=== PATIENT | male | born 1960 | race Two or more races ===

== ENCOUNTER 2025-08-14 08:13 | Inpatient (IN) | payer MEDICAID, OTHER ==
[~2025-08-14] VITALS: Ht 180.3 cm; Wt 90.3 kg
[2025-08-14 08:20] VITALS: PULSE 105; RESP 30; O2SAT 90
--- NOTE | 2025-08-14 08:57 | ECG ---
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
--- NOTE | 2025-08-14 09:04 | ED.PDOC ---
SOB-HPI HPI Comments 64 y.o male with PMHx of CH and HTN, presents to the ED via EMS for a chief complaint of SOB that started 2 days ago. EMS reports diminished lung sounds on their examination with a SPO2 of 81% RA. EMS placed patient on 10 liters nonrebreather and given 0.4 NTG which did not improve SPO2. Patient mentions unable to refill medications and has been out of them for 2 weeks. He also complains of intermittent chest pain for the past couple days but denies any active pain upon ED arrival. Chief Complaint: Shortness of Breath Time Seen by MD: 08:42 Reviewed notes: Nurses Notes, Medications, Allergies Information Source: Patient Mode of Arrival: EMS Severity: Moderate Timing: Days (2) Duration: Since onset Context: At Rest PE Risk Factors: None History of: CHF Modifying Factors: Nothing Associated Signs and Symptoms: Chest Pain Past Medical History PAST MEDICAL HISTORY: CHF, HTN Surgical History: Denies all surgeries Family History Family History: Reviewed,noncontributory to illness Social History Smoker: Quit Less Than 1 Year Alcohol: Denies ETOH Use Drugs: Denies Drug Use Lives In: Home Constitutional: denies: chills, diaphoresis, fatigue, fever, malaise, sweats, weakness, others EENTM: denies: blurred vision, double vision, ear bleeding, ear discharge, ear drainage, ear pain, ear ringing, eye pain, eye redness, hearing loss, mouth pain, mouth swelling, nasal discharge, nose bleeding, nose congestion, nose pain, photophobia, tearing, throat pain, throat swelling, voice changes, others Respiratory: reports: SOB at rest, shortness of breath, SOB with excertion; denies: cough, hemoptysis, orthopnea, stridor, wheezing, others Cardiovascular: reports: chest pain; denies: dizzy spells, diaphoresis, Dyspnea on exertion, edema, irregular heart beat, left arm pain, lightheadedness, palpitations, PND, syncope, others Gastrointestinal: denies: abdomen distended, abdominal pain, blood streaked bowels, constipated, diarrhea, dysphagia, difficulty swallowing, hematemesis, melena, nausea, poor appetite, poor fluid intake, rectal bleeding, rectal pain, vomiting, others Genitourinary: denies: burning, dysuria, flank pain, frequency, hematuria, incontinence, penile discharge, penile sore, pain, testicle pain, testicle swelling, urgency, others Neurological: denies: dizziness, fainting, headache, left sided numbness, left sided weakness, numbness, paresthesia, pre-existing deficit, right sided numbness, right sided weakness, seizure, speech problems, tingling, tremors, weakness, others Musculoskeletal: denies: back pain, gout, joint pain, joint swelling, muscle pain, muscle stiffness, neck pain, others Integumetry: denies: bruises, change in color, change in hair/nails, dryness, laceration, lesions, lumps, rash, wounds, others Allergic/Immunocompromised: denies: Difficulty Healing, Frequent Infections, Hives, Itching, others Hematologic/Lymphatic: denies: anemia, blood clots, easy bleeding, easy bruising, swollen glands, others Endocrine: denies: excessive hunger, excessive sweating, excessive thirst, excessive urination, flushing, intolerance to cold, intolerance to heat, unexp lained weight gain, unexplained weight loss, others Psychiatric: denies: anxiety, bipolar disorder, depression, hopeless, panic disorder, schizophrenia, sleepless, suicidal, others All Other Systems: Reviewed and Negative Physical Exam General Appearance: Moderate Distress HEENT: Normal ENT Inspection, Pharynx Normal, TMs Normal Neck: Full Range of Motion, Non-Tender, Normal, Normal Inspection Respiratory: Respiratory Distress, Other (Coarse breath sounds), NOT DONE Cardiovascular: Tachycardia Breast Exam: Deferred Gastrointestinal: No Organomegaly, Non Tender, No Pulsatile Mass, Normal Bowel Sounds, Soft Genitalia: Deferred Pelvic: Deferred Rectal: Deferred Extremities: No calf tenderness, Normal capillary refill, Normal inspection, Normal range of motion, Non-tender, No pedal edema Musculoskeletal : Apperance: Normal 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 Was a procedure done?: No Differential Dx Differential Diagnosis: Anxiety, Asthma, Bronchitis, CHF, COPD, Hyperventilation, Hyponatremia, Pneumonia, Respiratory Distress, URI X-Ray, Labs, Meds, VS Vital Signs Date Time Temp Pulse Resp B/P (MAP) Pulse Ox O2 Delivery O2 Flow Rate FiO2 08/14/25 11:59 77 25 123/82 (96) 99 08/14/25 10:38 99 137/100 08/14/25 10:30 99 25 137/100 (112) 99 08/14/25 09:45 158/112 08/14/25 09:41 105 158/112 08/14/25 09:15 105 25 158/112 (127) 95 08/14/25 09:04 103 08/14/25 08:30 103 08/14/25 08:20 105 30 90 Non-Rebreather 10 N/A 08/14/25 08:20 97.9 105 30 145/109 (121) 90 97.9 08/14/25 08:13 97.9 105 24 145/107 99 97.9 Lab Test 08/14/25 09:40 08/14/25 08:42 08/14/25 08:30 Range/Units White Blood Count 10.9 H 4.4-10.8 10^3/uL Red Blood Count 4.53 4.5-5.90 10^6/uL Hemoglobin 14.3 13.5-17.5 g/dL Hematocrit 41.8 41.0-53.0 % Mean Corpuscular Volume 92.3 80.0-100.0 fL Mean Corpuscular Hemoglobin 31.7 28.0-32.0 pg Mean Corpuscular Hemoglobin Concent 34.3 32.0-36.0 g/dL Red Cell Distribution Width 13.8 11.8-14.3 % Platelet Count 269 140-450 10^3/uL Mean Platelet Volume 9.9 6.9-10.8 fL Neutrophils (%) (Auto) 75.7 37.0-80.0 % Lymphocytes (%) (Auto) 12.9 10.0-50.0 % Monocytes (%) (Auto) 10.3 0.0-12.0 % Eosinophils (%) (Auto) 0.6 0.0-7.0 % Basophils (%) (Auto) 0.5 0.0-2.0 % Neutrophils # (Auto) 8.2 1.6-8.6 10 ^3/uL Lymphocytes # (Auto) 1.4 0.4-5.4 10 ^3/uL Monocytes # (Auto) 1.1 0-1.3 10 ^3/uL Eosinophils # (Auto) 0.1 0-0.8 10 ^3/uL Basophils # (Auto) 0.1 0-0.2 10 ^3/uL Nucleated Red Blood Cells 0.0 % B-Type Natriuretic Peptide 3686.79 0-100 pg/mL Sodium Level 143 136-145 mmol/L Potassium Level 4.8 3.5-5.1 mmol/L Chloride Level 111 H 98-107 mmol/L Carbon Dioxide Level 19 L 20-31 mmol/L Anion Gap 13 5-15 Blood Urea Nitrogen 40 H 9-23 mg/dL Creatinine 2.44 H 0.700-1.30 mg/dL Glomerular Filtration Rate Calc 29 >90 mL/min BUN/Creatinine Ratio 16.4 10.0-20.0 Serum Glucose 102 74-106 mg/dL Calcium Level 9.3 8.7-10.4 mg/dL Total Bilirubin 1.2 H 0.2-1.0 mg/dL Aspartate Amino Transferase (AST) 69 H 13-40 U/L Alanine Aminotransferase (ALT) 60 H 7-40 U/L Alkaline Phosphatase 162 H 46-116 U/L Total Protein 7.5 5.7-8.2 g/dL Albumin 4.4 3.2-4.8 g/dL Urine Color Light-yellow Yellow Urine Clarity Clear Clear Urine pH 5.0 5.0-9.0 Urine Specific [place] 1.009 1.001-1.035 Urine Protein Negative Negative Urine Ketones Negative Negative Urine Blood Negative Negative /uL Urine Nitrite Negative Negative Urine Bilirubin Negative Negative Urine Urobilinogen Normal Negative mg/dL Urine Leukocyte Esterase Negative Negative /uL Urine RBC <1 0 - 3 /hpf Urine Microscopic WBC 3 0-3 /HPF Urine Squamous Epithelial Cells None seen <5 /hpf Urine Bacteria Few H None Seen /hpf Urine Glucose 3+ H Normal mg/dL Current Medications Medications (Trade) Dose Ordered Sig/Jud Route Start Time Stop Time Status Last Admin Metoprolol Tartrate (Lopressor Tablet) 50 mg ONCE ONCE PO 08/14/25 09:30 08/14/25 09:31 DC 08/14/25 09:41 Furosemide (Lasix Tablet) 20 mg DAILY ONCE PO 08/14/25 10:00 08/14/25 10:01 DC 08/14/25 09:45 Patient alert. Complaining of shortness a breath. Vitals stable. Answering questions. Tachycardia. EKG reviewed does not show any acute changes. Was given metoprolol. Was given Lasix. Has not been taking his medications for few weeks. Placed on oxygen. Continue monitor. X-Ray, Labs, Meds, VS Comment AP portable chest CLINICAL INDICATION: SOB FINDINGS: Heart size enlarged. No infiltrates or effusions. IMPRESSION: 1. Cardiomegaly. No acute cardiopulmonary pathology Time of 1ST Reevaluation: 08:58 Reevaluation 1ST: Unchanged Patient Education/Counseling: Diagnosis, Treatment, Prognosis Family Education/Counseling: No Family Present SEPSIS Sepsis Screen Date sepsis recognized/suspect: Aug 14, 2025 Time Sepsis recognized/suspect: 812 Recent Procedure: No On Antibiotic Therapy: No Respiratory Rate >20: Yes Heart Rate >90: Yes Temp<36 C (96.8 F) or >38.3 C: No SBP <90 or MAP <65 mmHG: No New Acute Mental Status Change: No Is the patient on CPAP, BIPAP,: No Physician Orders Chest Portable (08/14/25 08:29) Vital Signs Date Time Temp Pulse Resp B/P (MAP) Pulse Ox O2 Delivery O2 Flow Rate FiO2 08/14/25 11:59 77 25 123/82 (96) 99 08/14/25 10:38 99 137/100 08/14/25 10:30 99 25 137/100 (112) 99 08/14/25 09:45 158/112 08/14/25 09:41 105 158/112 08/14/25 09:15 105 25 158/112 (127) 95 08/14/25 09:04 103 08/14/25 08:30 103 08/14/25 08:20 105 30 90 Non-Rebreather 10 N/A 08/14/25 08:20 97.9 105 30 145/109 (121) 90 97.9 08/14/25 08:13 97.9 105 24 145/107 99 97.9 Laboratory Tests Test 08/14/25 09:40 White Blood Count 10.9 10^3/uL (4.4-10.8) H Medications Medications Dose Ordered Sig/Jud Route Start Time Stop Time Status Last Admin Dose Admin Furosemide 20 mg DAILY ONCE PO 08/14/25 10:00 08/14/25 10:01 DC 08/14/25 09:45 Metoprolol Tartrate 50 mg ONCE ONCE PO 08/14/25 09:30 08/14/25 09:31 DC 08/14/25 09:41 Departure 1 Departure Time of Disposition: 09:29 Impression: Primary Impression: Acute respiratory failure Qualified Codes: J96.01 - Acute respiratory failure with hypoxia Disposition: ADMITTED INPATIENT Admit to: Med Surg Condition: Guarded Critical Care Note Critical Care Time?: Yes (90 min-critical care time only) Stability Stability form required: No Heart Score Heart Score: Heart Score Response (Comments) Value History Slightly Suspicious 0 EKG Normal 0 Age 45-64 1 Risk Factors 1 or 2 risk factors 1 Troponin Normal limit 0 Total 2 I personally scribed for SOFY MUNOZ MD ([email or web address]) on 08/14/25 at 09:04. Electronically submitted by [facility] ([facility]). I personally scribed for SOFY MUNOZ MD ([email or web address]) on 08/14/25 at 10:00. Electronically submitted by [facility] ([facility]). SOFY MUNOZ MD Aug 14, 2025 09:04
--- NOTE | 2025-08-14 09:05 | DVH ---
AP portable chest CLINICAL INDICATION: SOB FINDINGS: Heart size enlarged. No infiltrates or effusions. IMPRESSION: 1. Cardiomegaly. No acute cardiopulmonary pathology
[2025-08-14 09:06] LABS: Albumin 4.4 g/dL (3.2-4.8); Anion Gap 13 (5-15); BUN/Creatinine Ratio 16.4 (10.0-20.0); Bilirubin, Total 1.2 mg/dL (0.2-1.0); Calcium 9.3 mg/dL (8.7-10.4); Glucose 102 mg/dL (74-106); Potassium 4.8 mmol/L (3.5-5.1); Sodium 143 mmol/L (136-145); Total Protein 7.5 g/dL (5.7-8.2)
[2025-08-14 09:35] LABS: Alanine Aminotransferase 60 U/L (7-40); Alkaline Phosphatase 162 U/L (46-116); Blood Urea Nitrogen 40 mg/dL (9-23); Carbon Dioxide 19 mmol/L (20-31); Chloride 111 mmol/L (98-107)
[2025-08-14 09:36] LABS: Urine Protein, UAD Negative (Negative)
[2025-08-14] MEDS: METOPROLOL TARTRATE 50 MG TAB PO ONE (09:41)
[2025-08-14] MEDS: FUROSEMIDE 20 MG TAB PO ONE (09:45)
[2025-08-14 10:00] LABS: Hematocrit 41.8 % (41.0-53.0); Hemoglobin 14.3 g/dL (13.5-17.5); Mean Corpuscular Hemoglobin 31.7 pg (28.0-32.0); Mean Corpuscular Volume 92.3 fL (80.0-100.0); Nucleated Red Blood Cells % 0.0 %
--- NOTE | 2025-08-14 13:50 | DVHHP2 ---
History of Present Illness History of Present Illness 64 y.o male with PMHx of CH and HTN, presents to the ED via EMS for a chief complaint of SOB that started 2 days ago. EMS reports diminished lung sounds on their examination with a SPO2 of 81% RA. EMS placed patient on 10 liters nonrebreather and given 0.4 NTG which did not improve SPO2. Patient mentions unable to refill medications and has been out of them for 2 weeks. He also complains of intermittent chest pain for the past couple days but denies any active pain upon ED arrival. Patient endorses that he was seeing a box toe cementer but recently changed insurances from [employer] to [employer], currently no box toe cementer. He believes he heard EF 10-15% in the past echocardiogram. He is taking multiple medications with which he has been compliant. Endorses that normally his right leg swells up more. Review of Systems Constitutional: No: Fever, Chills, Sweats, Weakness, Malaise, Other Respiratory: Shortness of breath, SOB with excertion; No: Cough, Dry, Wheezing, Hemoptysis, Pleuritic Pain, Sputum, Wheezing, Other Cardiovascular: Edema; No: Chest Pain, Palpitations, Orthopnea, Paroxysmal Noc. Dyspnea, Lt Headedness, Other Gastrointestinal: No: Nausea, Vomiting, Abdominal Pain, Diarrhea, Constipation, Melena, Hematochezia, Other Neurological: No: Weakness, Numbness, Incoordination, Change in speech, Confusion, Seizures, Other Allergies: Coded Allergies: NO KNOWN ALLERGIES (Unverified , 08/14/25) Exam Vital Signs Vital Signs Date Time Temp Pulse Resp B/P (MAP) Pulse Ox O2 Delivery O2 Flow Rate FiO2 08/14/25 11:59 77 25 123/82 (96) 99 08/14/25 08:20 Non-Rebreather 10 N/A 08/14/25 08:20 97.9 97.9 Exam GEN: Unhealthy, short of breath, on nasal cannula HEENT: NC/AT; MMM. CV: RRR, no m/r/g. LUNGS: Rales bilaterally up to middle lobes bilateral, no wheezing, no cyanosis ABD: Soft, NT/ND, NBS, no masses or organomegaly. EXT: skin Warm, well perfused. no rashes. Trace pitting edema right lower extremity NEURO: Ambulating with no limitations. No focal deficits. Labs/Xrays Labs Test 08/14/25 09:40 08/14/25 08:42 08/14/25 08:30 Range/Units White Blood Count 10.9 H 4.4-10.8 10^3/uL Red Blood Count 4.53 4.5-5.90 10^6/uL Hemoglobin 14.3 13.5-17.5 g/dL Hematocrit 41.8 41.0-53.0 % Mean Corpuscular Volume 92.3 80.0-100.0 fL Mean Corpuscular Hemoglobin 31.7 28.0-32.0 pg Mean Corpuscular Hemoglobin Concent 34.3 32.0-36.0 g/dL Red Cell Distribution Width 13.8 11.8-14.3 % Platelet Count 269 140-450 10^3/uL Mean Platelet Volume 9.9 6.9-10.8 fL Neutrophils (%) (Auto) 75.7 37.0-80.0 % Lymphocytes (%) (Auto) 12.9 10.0-50.0 % Monocytes (%) (Auto) 10.3 0.0-12.0 % Eosinophils (%) (Auto) 0.6 0.0-7.0 % Basophils (%) (Auto) 0.5 0.0-2.0 % Neutrophils # (Auto) 8.2 1.6-8.6 10 ^3/uL Lymphocytes # (Auto) 1.4 0.4-5.4 10 ^3/uL Monocytes # (Auto) 1.1 0-1.3 10 ^3/uL Eosinophils # (Auto) 0.1 0-0.8 10 ^3/uL Basophils # (Auto) 0.1 0-0.2 10 ^3/uL Nucleated Red Blood Cells 0.0 % B-Type Natriuretic Peptide 3686.79 0-100 pg/mL Sodium Level 143 136-145 mmol/L Potassium Level 4.8 3.5-5.1 mmol/L Chloride Level 111 H 98-107 mmol/L Carbon Dioxide Level 19 L 20-31 mmol/L Anion Gap 13 5-15 Blood Urea Nitrogen 40 H 9-23 mg/dL Creatinine 2.44 H 0.700-1.30 mg/dL Glomerular Filtration Rate Calc 29 >90 mL/min BUN/Creatinine Ratio 16.4 10.0-20.0 Serum Glucose 102 74-106 mg/dL Calcium Level 9.3 8.7-10.4 mg/dL Total Bilirubin 1.2 H 0.2-1.0 mg/dL Aspartate Amino Transferase (AST) 69 H 13-40 U/L Alanine Aminotransferase (ALT) 60 H 7-40 U/L Alkaline Phosphatase 162 H 46-116 U/L Total Protein 7.5 5.7-8.2 g/dL Albumin 4.4 3.2-4.8 g/dL Urine Color Light-yellow Yellow Urine Clarity Clear Clear Urine pH 5.0 5.0-9.0 Urine Specific [place] 1.009 1.001-1.035 Urine Protein Negative Negative Urine Ketones Negative Negative Urine Blood Negative Negative /uL Urine Nitrite Negative Negative Urine Bilirubin Negative Negative Urine Urobilinogen Normal Negative mg/dL Urine Leukocyte Esterase Negative Negative /uL Urine RBC <1 0 - 3 /hpf Urine Microscopic WBC 3 0-3 /HPF Urine Squamous Epithelial Cells None seen <5 /hpf Urine Bacteria Few H None Seen /hpf Urine Glucose 3+ H Normal mg/dL SEPSIS Sepsis Screen Date sepsis recognized/suspect: Aug 14, 2025 Time Sepsis recognized/suspect: 819 Recent Procedure: No On Antibiotic Therapy: No Respiratory Rate >20: Yes Heart Rate >90: Yes Temp<36 C (96.8 F) or >38.3 C: No SBP <90 or MAP <65 mmHG: No New Acute Mental Status Change: No Is the patient on CPAP, BIPAP,: No Physician Orders Chest Portable (08/14/25 08:29) Vital Signs Date Time Temp Pulse Resp B/P (MAP) Pulse Ox O2 Delivery O2 Flow Rate FiO2 08/14/25 11:59 77 25 123/82 (96) 99 08/14/25 10:38 99 137/100 08/14/25 10:30 99 25 137/100 (112) 99 08/14/25 09:45 158/112 08/14/25 09:41 105 158/112 08/14/25 09:15 105 25 158/112 (127) 95 08/14/25 09:04 103 08/14/25 08:30 103 08/14/25 08:20 105 30 90 Non-Rebreather 10 N/A 08/14/25 08:20 97.9 105 30 145/109 (121) 90 97.9 08/14/25 08:13 97.9 105 24 145/107 99 97.9 Laboratory Tests Test 08/14/25 09:40 White Blood Count 10.9 10^3/uL (4.4-10.8) H Medications Medications Dose Ordered Sig/Jud Route Start Time Stop Time Status Last Admin Dose Admin Furosemide 20 mg DAILY ONCE PO 08/14/25 10:00 08/14/25 10:01 DC 08/14/25 09:45 20 MG Metoprolol Tartrate 50 mg ONCE ONCE PO 08/14/25 09:30 08/14/25 09:31 DC 08/14/25 09:41 50 MG Assessment/Plan Assessment/Plan 08/14: Patient acute shortness of breath 2 days ago and worsening, requiring non-rebreather in ER to maintain saturations, initially SpO2 81% on room air,. On exam patient volume overloaded rales up to middle lobes, mild trace pitting edema right lower extremity, creatinine elevated inpatient no knowledge of CKD, likely ALEXSANDRA, BNP elevated, chest x-ray with pulmonary vascular congestion diffus e, no JVD, no S3, no prior echo in this facility. Patient being admitted for acute hypoxic respiratory failure likely due to acute decompensated heart failure . We may need to rule out PE if hypoxia and tachycardia continue, Diagnosis: Acute hypoxic respiratory failure Acute exacerbation of chronic heart failure, systolic and diastolic dysfunction likely Diffuse pulmonary edema, acute onset ALEXSANDRA likely, on CKD possible, cardiorenal syndrome likely Sirs with AID (hypoxemia) Tachycardia Tachypnea Transaminitis, likely due to above Hyperbilirubinemia, likely due to above ALP elevated Plan: Echocardiogram Lasix 40 t.i.d. Continue home meds Crestor 20, Aldactone 25, Flomax 0.4, Lasix 20, bisoprolol 5, Jardiance 12.5, We will have to hold beta-blockers, due to concern for aDHF Strict I&O Cardiac diet with fluid restriction 1.2 L Tele Tele Full code Plan discussed with: Patient Date of Service: Aug 14, 2025 Billing Provider: RACHAEL PETERS MD Common Visit Codes: [id number] INP/OBS CARE (HIGH) Secondary Visit Codes: 19872-DBUOLBNE CARE PLAN 30 MINUTES RACHAEL PETERS MD Aug 14, 2025 13:50
[2025-08-14] MEDS ORDERED: HYDROcodone-ACET 5/325MG TAB PO PRN (14:00)
[2025-08-14] MEDS ORDERED: ONDANSETRON HCL 4 MG/2 ML VIAL IV PRN (14:00)
[2025-08-14] MEDS ORDERED: ACETAMINOPHEN 325 MG TAB PO PRN (14:00)
[2025-08-14] MEDS: EMPAGLIFLOZIN 10 MG TAB PO SCH (14:00)
[2025-08-14 16:20] VITALS: BP 114/79; PULSE 78; RESP 16; RESP 20; TEMP 97.8; O2SAT 96; O2SAT 97
[2025-08-14] MEDS: TAMSULOSIN HYDROCHLORIDE 0.4 MG CAP PO SCH (19:17)
[2025-08-14] MEDS ORDERED: EMPA1TAB3 PO (19:35)
[2025-08-14] MEDS ORDERED: TAMS0.4C39 PO (19:36)
[2025-08-14] MEDS ORDERED: FURO20TA3 PO (19:37)
[2025-08-14] MEDS ORDERED: SPIR25TA8 PO (19:37)
[2025-08-14] MEDS ORDERED: BISO5TAB44 PO (19:38)
[2025-08-14] MEDS ORDERED: ROSU20TA14 PO (19:38)
[2025-08-14 20:00] VITALS: PULSE 80; PULSE 81; RESP 20
[2025-08-14 21:00] VITALS: BP 125/89; PULSE 81; RESP 19; TEMP 97.3; O2SAT 98
[2025-08-14] MEDS: FUROSEMIDE 40 MG/4 ML VIAL IV SCH (21:27)
[2025-08-14] MEDS: ATORVASTATIN 20 MG TAB PO SCH (21:28)
[2025-08-15] VITALS (8 sets, daily range): BP systolic 111–143; BP diastolic 85–102; PULSE 82–100; RESP 17–19; TEMP 97–98.3; O2SAT 94–100
[2025-08-15 06:17] LABS: Hematocrit 45.9 % (41.0-53.0); Hemoglobin 15.8 g/dL (13.5-17.5); Mean Corpuscular Hemoglobin 31.6 pg (28.0-32.0); Mean Corpuscular Volume 92.0 fL (80.0-100.0); Nucleated Red Blood Cells % 0.2 %
[2025-08-15 06:34] LABS: Anion Gap 13 (5-15); BUN/Creatinine Ratio 14.2 (10.0-20.0); Calcium 10.0 mg/dL (8.7-10.4); Carbon Dioxide 25 mmol/L (20-31); Chloride 102 mmol/L (98-107); Glucose 88 mg/dL (74-106); Potassium 4.3 mmol/L (3.5-5.1); Sodium 140 mmol/L (136-145)
[2025-08-15 06:48] LABS: Alanine Aminotransferase 99 U/L (7-40); Albumin 4.9 g/dL (3.2-4.8); Alkaline Phosphatase 198 U/L (46-116); Bilirubin, Total 1.9 mg/dL (0.2-1.0); Blood Urea Nitrogen 38 mg/dL (9-23); Total Protein 8.8 g/dL (5.7-8.2)
[2025-08-15] MEDS: SPIRONOLACTONE 25 MG TAB PO SCH (09:41)
[2025-08-15] MEDS: ENOXAPARIN SOD 40 MG/0.4 ML SYRINGE SC SCH (09:41)
--- NOTE | 2025-08-15 10:34 | DVHPN2 ---
Subjective Seen at bedside today, symptoms improving. Doing well. Reviewed: H&P Changes from previous H/P or p: No Changes General: Per HPI Cardiovascular: No Chest Pain, No Palpitations, No Orthopnea, No Paroxysmal Noc. Dyspnea; Edema; No Lt Headedness, No Other Respiratory: No Cough, No Dry; Shortness of breath, SOB with excertion; No Wheezing, No Hemoptysis, No Pleuritic Pain, No Sputum, No Other Gastrointestinal: No Nausea, No Vomiting, No Abdominal Pain, No Diarrhea, No Constipation, No Melena, No Hematochezia, No Other Objective Vitals Vital Signs Date Time Temp Pulse Resp B/P (MAP) Pulse Ox O2 Delivery O2 Flow Rate FiO2 08/15/25 07:37 Nasal Cannula* 6 44 08/15/25 06:06 98.1 86 19 131/102 (112) 99 98.1 Intake/Output Intake and Output 08/15/25 07:00 Intake Total 2020 ml Output Total 2350 ml Balance -330 ml Intake Oral 2020 ml Output Urine Total 2350 ml # Bowel Movements 1 Exam GEN: Unhealthy, short of breath, on nasal cannula HEENT: NC/AT; MMM. CV: RRR, no m/r/g. LUNGS: Rales bilaterally up to middle lobes bilateral, no wheezing, no cyanosis ABD: Soft, NT/ND, NBS, no masses or organomegaly. EXT: skin Warm, well perfused. no rashes. Trace pitting edema right lower extremity NEURO: Ambulating with no limitations. No focal deficits. Medications Current Medications Medications Dose Ordered Sig/Jud Route Start Time Stop Time Status Last Admin Dose Admin Acetaminophen/ Hydrocodone Bitart 1 tab Q4HP PRN PO 08/14/25 14:00 Ondansetron HCl 4 mg Q4HP PRN IV 08/14/25 14:00 Enoxaparin Sodium 40 mg DAILY SC 08/15/25 10:00 08/15/25 09:41 40 MG Acetaminophen 650 mg Q6HP PRN PO 08/14/25 14:00 Atorvastatin Calcium 40 mg HS PO 08/14/25 22:00 08/14/25 21:28 40 MG Spironolactone 25 mg DAILY PO 08/15/25 10:00 08/15/25 09:41 25 MG Tamsulosin HCl 0.4 mg QPM PO 08/14/25 18:00 08/14/25 19:17 0.4 MG Empaglifozin 10 mg DAILY PO 08/14/25 14:00 08/15/25 09:41 10 MG Furosemide 40 mg DAILY IV 08/16/25 10:00 Laboratory Results Laboratory Tests 08/15/25 05:48 Chemistry Test 08/15/25 05:48 Albumin 4.9 g/dL (3.2-4.8) H Calcium Level 10.0 mg/dL (8.7-10.4) Total Protein 8.8 g/dL (5.7-8.2) H LFT Test 08/15/25 05:48 Alanine Aminotransferase (ALT) 99 U/L (7-40) H Alkaline Phosphatase 198 U/L (46-116) H Aspartate Amino Transferase (AST) 72 U/L (13-40) H Total Bilirubin 1.9 mg/dL (0.2-1.0) H Urinalysis Test 08/14/25 08:30 Urine Color Light-yellow (Yellow) Urine Clarity Clear (Clear) Urine pH 5.0 (5.0-9.0) Urine Specific [place] 1.009 (1.001-1.035) Urine Protein Negative (Negative) Urine Ketones Negative (Negative) Urine Blood Negative /uL (Negative) Urine Nitrite Negative (Negative) Urine Bilirubin Negative (Negative) Urine Urobilinogen Normal mg/dL (Negative) Urine Leukocyte Esterase Negative /uL (Negative) Urine RBC <1 /hpf (0 - 3) Urine Microscopic WBC 3 /HPF (0-3) Urine Squamous Epithelial Cells None seen /hpf (<5) Urine Bacteria Few /hpf (None Seen) H Urine Glucose 3+ mg/dL (Normal) H Labs and/or images reviewed: Labs reviewed by me, Image(s) reviewed by me Assessment/Plan Assessment/Plan 08/14: Patient acute shortness of breath 2 days ago and worsening, requiring n on-rebreather in ER to maintain saturations, initially SpO2 81% on room air,. On exam patient volume overloaded rales up to middle lobes, mild trace pitting edema right lower extremity, creatinine elevated inpatient no knowledge of CKD, likely ALEXSANDRA, BNP elevated, chest x-ray with pulmonary vascular congestion diffuse, no JVD, no S3, no prior echo in this facility. Patient being admitted for acute hypoxic respiratory failure likely due to acute decompensated heart failure . We may need to rule out PE if hypoxia and tachycardia continue, 08/15: Significant improvement in rales but still on high level oxygen 6 L nasal cannula. Creatinine worsening T bili worsening, we will get right upper quadrant ultrasound, consult Nephrology, decrease Lasix from 40 t.i.d. to 40 daily. Diagnosis: Acute hypoxic respiratory failure Acute exacerbation of chronic heart failure, systolic and diastolic dysfunction likely Diffuse pulmonary edema, acute onset ALEXSANDRA likely, on CKD possible, cardiorenal syndrome likely Sirs with AID (hypoxemia) Tachycardia Tachypnea Transaminitis, likely due to above Hyperbilirubinemia, likely due to above ALP elevated Plan: Echocardiogram Lasix 40 t.i.d. Continue home meds Crestor 20, Aldactone 25, Flomax 0.4, Lasix 20, bisoprolol 5, Jardiance 12.5, We will have to hold beta-blockers, due to concern for aDHF Strict I&O Cardiac diet with fluid restriction 1.2 L Tele Tele Full code Plan discussed with: Patient My Orders Orders - RACHAEL PETERS MD Procedure Category Date Status Time Admit ADMIT 08/14/25 Transmitted 13:46 Code Status CODE 08/14/25 Transmitted 13:46 Hydrocodone-Acet PHA 08/14/25 In Process 5/325mg Tab ([place] 14:00 Ondansetron Hcl PHA 08/14/25 In Process (Zofran) 14:00 Enoxaparin Sodium PHA 08/15/25 In Process (Lovenox) 10:00 Cardiac DIET 08/14/25 Transmitted Diet-2gna,Lofat,Lochol Dinner Acetaminophen Tablet PHA 08/14/25 In Process (Tylenol Tablet) 14:00 Bedrest With Bathroom MARYSE 08/14/25 In Process Privileg 13:46 Atorvastatin (Lipitor) PHA 08/14/25 In Process 22:00 Spironolactone PHA 08/15/25 In Process (Aldactone) 10:00 Tamsulosin PHA 08/14/25 In Process Hydrochloride (Flomax) 18:00 Empagliflozin PHA 08/14/25 In Process (Jardiance) 14:00 Furosemide Injection PHA 08/16/25 In Process (Lasix Injection) 10:00 *[facility] CONS 08/15/25 Transmitted -[place] 10:24 Abdomen Limited US 08/15/25 Logged 10:24 Date of Service: Aug 15, 2025 Billing Provider: RACHAEL PETERS MD Common Visit Codes: [id number] INP/OBS CARE(HIGH) RACHAEL PETERS MD Aug 15, 2025 10:34
--- NOTE | 2025-08-15 10:45 | DVHINCON2 ---
Date of service: Aug 15, [address] Rocha Reason for Consultation Acute kidney injury History of Present Illness Patient is a 64-year-old male with past medical history of hypertension, BPH and chronic systolic Congestive heart failure is admitted for worsening shortness of breath over to three days prior to admission on admission patient found to have elevated BUN creatinine nephrology is consulted for acute kidney injury Past Medical History Hypertension Chronic systolic Congestive heart failure BPH Past Surgical History Patient denies Allergies: Coded Allergies: NO KNOWN ALLERGIES (Unverified , 08/14/25) Home Meds Reported Medications Rosuvastatin Calcium (Crestor) 20 Mg Tab, 1 TAB PO DAILY, #30 TAB 5 Refills 08/14/25 Bisoprolol Fumarate (Bisoprolol Fumarate) 5 Mg Tab, 5 MG PO, TAB 08/14/25 Furosemide (Furosemide) 20 Mg Tab, 1 TAB PO DAILY, #90 TAB 1 Refill 08/14/25 Spironolactone (Spironolactone) 25 Mg Tab, 1.2 TAB PO DAILY, #90 TAB 1 Refill 08/14/25 Tamsulosin Hcl (Tamsulosin Hcl) 0.4 Mg Cap, 1 CAP PO DAILY, #30 CAP 5 Refills 08/14/25 Empagliflozin (Jardiance) 25 Mg Tab, 25 MG PO, TAB 08/14/25 Current Medications Current Medications Medications (Trade) Dose Ordered Sig/Jud Route PRN Reason Start Time Stop Time Status Last Admin Acetaminophen/ Hydrocodone Bitart (Adrian 5/325MG Tab) 1 tab Q4HP PRN PO MODERATE PAIN (4-6 PAIN SCALE) 08/14/25 14:00 Ondansetron HCl (Zofran) 4 mg Q4HP PRN IV NAUSEA / VOMITING 08/14/25 14:00 Enoxaparin Sodium (Lovenox) 40 mg DAILY SC 08/15/25 10:00 08/15/25 09:41 Acetaminophen (Tylenol Tablet) 650 mg Q6HP PRN PO PAIN SCALE 1-3 OR TEMP>100.4 08/14/25 14:00 Furosemide (Lasix Injection) 40 mg TID IV 08/14/25 14:00 08/15/25 10:28 DC 08/15/25 05:58 Atorvastatin Calcium (Lipitor) 40 mg HS PO 08/14/25 22:00 08/14/25 21:28 Spironolactone (Aldactone) 25 mg DAILY PO 08/15/25 10:00 08/15/25 09:41 Tamsulosin HCl (Flomax) 0.4 mg QPM PO 08/14/25 18:00 08/14/25 19:17 Empaglifozin (Jardiance) 10 mg DAILY PO 08/14/25 14:00 08/15/25 09:41 Furosemide (Lasix Injection) 40 mg DAILY IV 08/16/25 10:00 UNV Family History: Patient reports no known family medical history. Review of Systems All 12 item review of systems reviewed with the patient nonsignificant except what is mentioned in the history of present illness H&P Exam Vital Signs/I&O Vital Sign Date Time Temp Pulse Resp B/P (MAP) Pulse Ox O2 Delivery O2 Flow Rate FiO2 08/15/25 07:37 Nasal Cannula* 6 44 08/15/25 06:06 98.1 86 19 131/102 (112) 99 98.1 Intake and Output 08/14/25 08/15/25 19:00 07:00 Intake Total 120 ml 1900 ml Output Total 300 ml 2050 ml Balance -180 ml -150 ml Intake Oral 120 ml 1900 ml Output Urine Total 300 ml 2050 ml # Bowel Movements 1 Physical Exam Moderate respiratory distress O2 high flow nasal cannula Lungs bibasilar crackles Cardiac exam regular rate and rhythm GI soft nontender was normal Extremities no clubbing cyanosis or edema Neuro nonfocal Labs/Diagnostic Data Labs/Diagnostic Data Laboratory Tests Test 08/15/25 05:48 08/14/25 09:40 08/14/25 08:42 08/14/25 08:30 Range/Units White Blood Count 10.2 10.9 H 4.4-10.8 10^3/uL Red Blood Count 4.99 4.53 4.5-5.90 10^6/uL Hemoglobin 15.8 14.3 13.5-17.5 g/dL Hematocrit 45.9 41.8 41.0-53.0 % Mean Corpuscular Volume 92.0 92.3 80.0-100.0 fL Mean Corpuscular Hemoglobin 31.6 31.7 28.0-32.0 pg Mean Corpuscular Hemoglobin Concent 34.4 34.3 32.0-36.0 g/dL Red Cell Distribution Width 13.8 13.8 11.8-14.3 % Platelet Count 275 269 140-450 10^3/uL Mean Platelet Volume 10.2 9.9 6.9-10.8 fL Neutrophils (%) (Auto) 71.1 75.7 37.0-80.0 % Lymphocytes (%) (Auto) 15.9 12.9 10.0-50.0 % Monocytes (%) (Auto) 11.7 10.3 0.0-12.0 % Eosinophils (%) (Auto) 0.6 0.6 0.0-7.0 % Basophils (%) (Auto) 0.7 0.5 0.0-2.0 % Neutrophils # (Auto) 7.3 8.2 1.6-8.6 10 ^3/uL Lymphocytes # (Auto) 1.6 1.4 0.4-5.4 10 ^3/uL Monocytes # (Auto) 1.2 1.1 0-1.3 10 ^3/uL Eosinophils # (Auto) 0.1 0.1 0-0.8 10 ^3/uL Basophils # (Auto) 0.1 0.1 0-0.2 10 ^3/uL Nucleated Red Blood Cells 0.2 0.0 % Sodium Level 140 143 136-145 mmol/L Potassium Level 4.3 4.8 3.5-5.1 mmol/L Chloride Level 102 111 H 98-107 mmol/L Carbon Dioxide Level 25 19 L 20-31 mmol/L Anion Gap 13 13 5-15 Blood Urea Nitrogen 38 H 40 H 9-23 mg/dL Creatinine 2.67 H 2.44 H 0.700-1.30 mg/dL Glomerular Filtration Rate Calc 26 29 >90 mL/min BUN/Creatinine Ratio 14.2 16.4 10.0-20.0 Serum Glucose 88 102 74-106 mg/dL Calcium Level 10.0 9.3 8.7-10.4 mg/dL Total Bilirubin 1.9 H 1.2 H 0.2-1.0 mg/dL Aspartate Amino Transferase (AST) 72 H 69 H 13-40 U/L Alanine Aminotransferase (ALT) 99 H 60 H 7-40 U/L Alkaline Phosphatase 198 H 162 H 46-116 U/L Total Protein 8.8 H 7.5 5.7-8.2 g/dL Albumin 4.9 H 4.4 3.2-4.8 g/dL B-Type Natriuretic Peptide 3686.79 0-100 pg/mL Urine Color Light-yellow Yellow Urine Clarity Clear Clear Urine pH 5.0 5.0-9.0 Urine Specific [place] 1.009 1.001-1.035 Urine Protein Negative Negative Urine Ketones Negative Negative Urine Blood Negative Negative /uL Urine Nitrite Negative Negative Urine Bilirubin Negative Negative Urine Urobilinogen Normal Negative mg/dL Urine Leukocyte Esterase Negative Negative /uL Urine RBC <1 0 - 3 /hpf Urine Microscopic WBC 3 0-3 /HPF Urine Squamous Epithelial Cells None seen <5 /hpf Urine Bacteria Few H None Seen /hpf Urine Glucose 3+ H Normal mg/dL Assessment Acute kidney injury superimposed Chronic Kidney Disease secondary hemodynamic me diated Acute respiratory failure, O2 nasal cannula Congestive heart failure exacerbation BPH Transaminitis Jaundice Recommendations Closely monitor fluid and electrolytes Avoid nephrotoxic medications Strict I&Os Check urine electrolytes and protein excretion Check kidney ultrasound Bumex 1 mg IV b.i.d. Low-salt renal diet Cardiology consult GI consult We will continue to follow Patient seen and examined by myself and. I discussed my plan of care with the patient and primary nurse at the bedside I would like to thank Dr. Rocha for the consult, will follow Plan discussed with: Patient BENJAMÍN VALLADARES MD Aug 15, 2025 10:44
[2025-08-15 11:10] LABS: Magnesium 2.0 mg/dL (1.6-2.6)
--- NOTE | 2025-08-15 11:34 | DVH ---
Ultrasound abdomen INDICATION: ruq, high bili Technique: 2-D real-time ultrasound was performed with axial and sagittal images submitted for evalu ation. FINDINGS: Liver normal in size without focal mass. Liver measures 14.7 cm. Spleen measures 12 cm. The gallbladder is incompletely distended with slight thickening of the vera measuring 2-3 mm. No biliary dilatation. Common bile duct measures 4.3 mm Right kidney measures 13.6 cm with a 3 cm cyst in the lower pole. There is moderately severe hydronep hrosis of the right kidney. Left kidney measures 14.8 cm. Without hydronephrosis. IMPRESSION: 1. The gallbladder is poorly seen on this exam due to incomplete distention. No definite gallstones are seen but there may be gallbladder wall thickening. There is no dilatation of the biliary tree. Ma y consider MRCP for better evaluation 2. Hydronephrosis of the right kidney moderately severe.
--- NOTE | 2025-08-15 13:15 | DVHSR ---
APPROVED REPORT EXAM: Two-dimensional and M-mode echocardiogram with Doppler and color Doppler. Blood Pressure: 123/82 mmHg INDICATION CHF Eval EF RISK FACTORS Height: 5' 11", Weight: 230 DIMENSIONS LVDd6.9 (3.8-5.7cm)LA (2D)5.6 (1.9-4.0cm)Aortic Root3.6 (2.0-3.7cm) LVDs6.7 (2.5-4.0cm)LA (MM) (1.9-4.0cm)Aortic Cusp Exc1.8 (1.5-2.0cm) EF (%) 6.0 (55-70%)Rt. Atrium5.5 (1.9-4.0cm)Asc. Aorta cm IVSd1.0 (0.7-1.1cm)RV (D) (1.8-2.4cm) PWd1.0 (0.7-1.1cm) Mitral Valve MitralMitral Stenosis E wave1.00m/sMV Mean GR.mmHg A wave0.70m/sMV Peak GR.mmHg E/A ratio1.42D MVAcm2 Aortic Valve Aortic ValveAortic Stenosis V10.50m/Curtis Mean GR.5mmHg V21.40m/Curtis Peak GR.9mmHg LVOT Diameter2.2 (1.8-2.4cm)Doppler AVA1.36cm2 Pulmonic Valve V21.10m/s Tricuspid Valve TR Velocity3.20m/s [id number] Conclusion Technically good study. Sinus rhythm. Left ventricular enlargement. Left atrial enlargement. Valves are normal. Left ventricular systolic performance is markedly diminished. EF is approximately 10% at best. Dimi nished RV function. Gsydocrh-pp-kaeciz mitral insufficiency. [id number] tricuspid regurgitation with a right libby tricular systolic pressure 68-70 mmHg consistent with pulmonary hypertension. Mild pulmonic insuffic iency No pericardial effusion masses or vegetations
[2025-08-15] MEDS: BUMETANIDE 1mg/4ml VIAL (0.25mg/ml) IV SCH (18:31)
[2025-08-16] VITALS (7 sets, daily range): BP systolic 108–126; BP diastolic 62–90; PULSE 51–99; RESP 16–19; TEMP 97.4–98.4; O2SAT 93–100
[2025-08-16 02:25] LABS: Urine Protein, UAD Negative (Negative)
[2025-08-16 02:33] LABS: Protein, Urine < 6.0 mg/dL (1-14)
[2025-08-16 02:35] LABS: Amphetamine Screen, Urine Pos (NEGATIVE)
[2025-08-16 02:38] LABS: Barbiturate Scree,Urine Neg (NEGATIVE); Benzodiazephine Screen, Urine Neg (NEGATIVE); Cannabinoid Screen, Urine Neg (NEGATIVE); Cocaine Screen, Urine Neg (NEGATIVE); Opiate Scree,Urine Neg (NEGATIVE); Phencyclidine Screen, Urine Neg (NEGATIVE)
[2025-08-16 08:30] LABS: Albumin 4.4 g/dL (3.2-4.8); Anion Gap 12 (5-15); BUN/Creatinine Ratio 16.6 (10.0-20.0); Calcium 9.1 mg/dL (8.7-10.4); Sodium 141 mmol/L (136-145); Total Protein 7.8 g/dL (5.7-8.2)
[2025-08-16 08:31] LABS: Bilirubin, Total 1.0 mg/dL (0.2-1.0)
[2025-08-16 08:32] LABS: Alanine Aminotransferase 69 U/L (7-40); Alkaline Phosphatase 163 U/L (46-116); Blood Urea Nitrogen 47 mg/dL (9-23); Carbon Dioxide 32 mmol/L (20-31); Chloride 97 mmol/L (98-107); Glucose 73 mg/dL (74-106); Potassium 3.4 mmol/L (3.5-5.1)
[2025-08-16] MEDS ORDERED: FUROSEMIDE 40 MG/4 ML VIAL IV SCH (10:00)
[2025-08-16 10:20] LABS: Hepatitis B Surface Antigen Negative (Negative)
[2025-08-16 11:11] LABS: Hepatitis C Antibody Negative (Negative)
--- NOTE | 2025-08-16 11:40 | DVHPN2 ---
Subjective Seen at bedside today, symptoms improving. Doing well. Reviewed: H&P Changes from previous H/P or p: No Changes General: Per HPI Cardiovascular: No Chest Pain, No Palpitations, No Orthopnea, No Paroxysmal Noc. Dyspnea; Edema; No Lt Headedness, No Other Respiratory: No Cough, No Dry; Shortness of breath, SOB with excertion; No Wheezing, No Hemoptysis, No Pleuritic Pain, No Sputum, No Other Gastrointestinal: No Nausea, No Vomiting, No Abdominal Pain, No Diarrhea, No Constipation, No Melena, No Hematochezia, No Other Objective Vitals Vital Signs Date Time Temp Pulse Resp B/P (MAP) Pulse Ox O2 Delivery O2 Flow Rate FiO2 08/16/25 09:00 97.8 52 16 112/90 (97) 93 97.8 08/15/25 20:00 Nasal Cannula* 6 44 Intake/Output Intake and Output 08/16/25 07:00 Intake Total 3180 ml Balance 3180 ml Intake Oral 3180 ml # Voids 9 # Bowel Movements 1 Exam GEN: Unhealthy, short of breath, on nasal cannula HEENT: NC/AT; MMM. CV: RRR, no m/r/g. LUNGS: Rales bilaterally up to middle lobes bilateral, no wheezing, no cyanosis ABD: Soft, NT/ND, NBS, no masses or organomegaly. EXT: skin Warm, well perfused. no rashes. Trace pitting edema right lower extremity NEURO: Ambulating with no limitations. No focal deficits. Medications Current Medications Medications Dose Ordered Sig/Jud Route Start Time Stop Time Status Last Admin Dose Admin Acetaminophen/ Hydrocodone Bitart 1 tab Q4HP PRN PO 08/14/25 14:00 Ondansetron HCl 4 mg Q4HP PRN IV 08/14/25 14:00 Enoxaparin Sodium 40 mg DAILY SC 08/15/25 10:00 08/16/25 09:34 40 MG Acetaminophen 650 mg Q6HP PRN PO 08/14/25 14:00 Atorvastatin Calcium 40 mg HS PO 08/14/25 22:00 08/15/25 20:29 40 MG Spironolactone 25 mg DAILY PO 08/15/25 10:00 08/16/25 09:33 25 MG Tamsulosin HCl 0.4 mg QPM PO 08/14/25 18:00 08/15/25 18:31 0.4 MG Empaglifozin 10 mg DAILY PO 08/14/25 14:00 08/16/25 09:33 10 MG Laboratory Results Laboratory Tests 08/15/25 05:48 08/16/25 07:01 Chemistry Test 08/16/25 07:01 Albumin 4.4 g/dL (3.2-4.8) Calcium Level 9.1 mg/dL (8.7-10.4) Total Protein 7.8 g/dL (5.7-8.2) LFT Test 08/16/25 07:01 Alanine Aminotransferase (ALT) 69 U/L (7-40) H Alkaline Phosphatase 163 U/L (46-116) H Aspartate Amino Transferase (AST) 34 U/L (13-40) Total Bilirubin 1.0 mg/dL (0.2-1.0) Urinalysis Test 08/16/25 00:35 Urine Color Colorless (Yellow) Urine Clarity Clear (Clear) Urine pH 5.0 (5.0-9.0) Urine Specific [place] 1.006 (1.001-1.035) Urine Protein Negative (Negative) Urine Ketones Negative (Negative) Urine Blood Negative /uL (Negative) Urine Nitrite Negative (Negative) Urine Bilirubin Negative (Negative) Urine Urobilinogen Normal mg/dL (Negative) Urine Leukocyte Esterase Negative /uL (Negative) Urine RBC 1 /hpf (0 - 3) Urine Microscopic WBC 1 /HPF (0-3) Urine Squamous Epithelial Cells None seen /hpf (<5) Urine Bacteria None seen /hpf (None Seen) Urine Creatinine 24.34 mg/dL (30.0-125.0) L Urine Protein/Creatinine Ratio 0.25 Urine Sodium 60 mmol/L (40-220) Urine Glucose 2+ mg/dL (Normal) H Urine Total Protein < 6.0 mg/dL (1-14) Labs and/or images reviewed: Labs reviewed by me, Image(s) reviewed by me Assessment/Plan Assessment/Plan 08/14: Patient acute shortness of breath 2 days ago and worsening, requiring n on-rebreather in ER to maintain saturations, initially SpO2 81% on room air,. On exam patient volume overloaded rales up to middle lobes, mild trace pitting edema right lower extremity, creatinine elevated inpatient no knowledge of CKD, likely ALEXSANDRA, BNP elevated, chest x-ray with pulmonary vascular congestion diffuse, no JVD, no S3, no prior echo in this facility. Patient being admitted for acute hypoxic respiratory failure likely due to acute decompensated heart failure . We may need to rule out PE if hypoxia and tachycardia continue, 08/15: Significant improvement in rales but still on high level oxygen 6 L nasal cannula. Creatinine worsening T bili worsening, we will get right upper quadrant ultrasound, consult Nephrology, decrease Lasix from 40 t.i.d. to 40 daily. 08/16: Patient feels at baseline now much better, still on nasal cannula 3 L, we will need ABG on room air today. Nephrology following had switch from Lasix to Bumex 1 mg IV b.i.d., patient has made adequate urine output this a.m. labs show contraction alkalosis, I am stopping diuresis he does have still some by basilar fine rales but overall looks euvolemic. Patient claims he has [employer] insurance we will get ABG and see if patient qualifies for home oxygen. Echo done showing 10% EF, patient has no instructor psychiatric aide, and endorses that his most recent EF last year was 10-15%, consistent with his current echocardiogram results. --nephrology recommendation Lasix 40 mg p.o. daily Diagnosis: Acute hypoxic respiratory failure Acute exacerbation of chronic heart failure, systolic and diastolic dysfunction likely Diffuse pulmonary edema, acute onset ALEXSANDRA likely, on CKD possible, cardiorenal syndrome likely Sirs with AID (hypoxemia) Tachycardia Tachypnea Transaminitis, likely due to above Hyperbilirubinemia, likely due to above ALP elevated Plan: Echocardiogram Lasix 40 t.i.d. Continue home meds Crestor 20, Aldactone 25, Flomax 0.4, Lasix 20, bisoprolol 5, Jardiance 12.5, We will have to hold beta-blockers, due to concern for aDHF Strict I&O Cardiac diet with fluid restriction 1.2 L Tele Tele Full code Plan discussed with: Patient My Orders Orders - RACHAEL PETERS MD Procedure Category Date Status Time * Director Of Operations Home Health CONS 08/15/25 Transmitted Consult Date of Service: Aug 16, 2025 Billing Provider: RACHAEL PETERS MD Common Visit Codes: [id number] INP/OBS CARE(HIGH) RACHAEL PETERS MD Aug 16, 2025 11:40
[2025-08-16 15:05] LABS: Base Excess 6.3 mmol/L (-2.0-3.0)
[2025-08-16] MEDS: POTASSIUM CHL 20 Meq TABLET PO ONE (17:31)
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
--- NOTE | 2025-08-16 18:33 | DVH ---
Technique: Real-time ultrasound imaging, with color Doppler and compression of the lower extremity Indication: Edema Comparison: None Findings: This is a very technically limited examination. The patient declined evaluation of the bilateral com mon femoral, proximal superficial femoral veins. The bilateral distal superficial femoral, popliteal veins demonstrate no filling defect and demonstrate compressibility. Recommend repeat examination on ce patient is able to tolerate. Impression: Limited evaluation as above
--- NOTE | 2025-08-16 20:09 | DVHPN2 ---
Progress Note Date Seen: Aug 16, 2025 Medical Necessity Reason Pt with a Central, PICC or Fol: No Subjective Patient reports: No new complaints, Feels better Review of Systems: HEENT:Normal, CVS:Normal, RESPIRATORY:Normal, GI:Normal, :Normal, MSK:Normal, NEURO:Normal Objective vital signs Vital Sign Date Time Temp Pulse Resp B/P (MAP) Pulse Ox O2 Delivery O2 Flow Rate FiO2 08/16/25 17:00 98.1 51 16 108/62 (77) 95 98.1 08/16/25 08:00 Nasal Cannula* 2 28 Total Intake and Output 08/15/25 08/15/25 08/16/25 15:00 23:00 07:00 Intake Total 1380 ml 1800 ml Balance 1380 ml 1800 ml medications Current Medications Medications Dose Ordered Sig/Jud Route Start Time Stop Time Status Last Admin Dose Admin Acetaminophen/ Hydrocodone Bitart 1 tab Q4HP PRN PO 08/14/25 14:00 Ondansetron HCl 4 mg Q4HP PRN IV 08/14/25 14:00 Enoxaparin Sodium 40 mg DAILY SC 08/15/25 10:00 08/16/25 09:34 40 MG Acetaminophen 650 mg Q6HP PRN PO 08/14/25 14:00 Atorvastatin Calcium 40 mg HS PO 08/14/25 22:00 08/15/25 20:29 40 MG Tamsulosin HCl 0.4 mg QPM PO 08/14/25 18:00 08/16/25 17:35 0.4 MG Furosemide 40 mg DAILY PO 08/17/25 10:00 Metoprolol Tartrate 25 mg BID PO 08/16/25 22:00 laboratory and microbiology Laboratory Tests 08/16/25 07:01 08/15/25 05:48 Test 08/16/25 07:01 Range/Units Serum Glucose 73 L 74-106 mg/dL Problem List/Assessment/Plan Problem List/Assessment/Plan Acute kidney injury superimposed Chronic Kidney Disease secondary hemodynamic mediated cardiorenal etiology Acute respiratory failure, O2 nasal cannula Congestive heart failure exacerbation BPH Transaminitis Jaundice recs switch to po diuretics ef 10 Plan discussed with: Patient ARCELIA DE LA TORRE MD Aug 16, 2025 20:09
[2025-08-16] MEDS: MAGNESIUM SULFATE 1GM/100ML 100 ML IV ONE (20:56)
[2025-08-16] MEDS: METOPROLOL TARTRATE 25 MG TAB PO SCH (21:02)
[2025-08-17] VITALS (8 sets, daily range): BP systolic 108–147; BP diastolic 75–96; PULSE 50–92; RESP 18; TEMP 97.5–97.9; O2SAT 95–100
--- NOTE | 2025-08-17 06:02 | DVH ---
CHEST RADIOGRAPH Indication: CHF Technique: Single frontal view of the chest was obtained COMPARISON: XY CHEST PORTABLE on DOS: 08/14/25 FINDINGS: Lines and Tubes: None Lungs: Mild diffuse increased prominence of the pulmonary vasculature. No evidence of focal consolid ation. Pleura: No effusion. No pneumothorax. Cardiomediastinal contours: Cardiomegaly. Bones: Unremarkable IMPRESSION: 1. Cardiomegaly with mild pulmonary vascular congestion. Workstation: [id number]
[2025-08-17] MEDS: IOHEXOL 300 MG/ML 100ML BOTTLE IJ ONE (07:49)
[2025-08-17 08:07] LABS: Prostate Specific Antigen 1.3 ng/mL (0.0-4.0)
[2025-08-17 09:00] LABS: Albumin 4.4 g/dL (3.2-4.8); Anion Gap 11 (5-15); BUN/Creatinine Ratio 13.4 (10.0-20.0); Calcium 8.9 mg/dL (8.7-10.4); Carbon Dioxide 25 mmol/L (20-31); Cholesterol 174 mg/dL (< 200); Glucose 91 mg/dL (74-106); Hematocrit 47.7 % (41.0-53.0); Hemoglobin 16.3 g/dL (13.5-17.5); Mean Corpuscular Hemoglobin 31.6 pg (28.0-32.0); Mean Corpuscular Volume 92.7 fL (80.0-100.0); Nucleated Red Blood Cells % 0.2 %; Total Protein 7.8 g/dL (5.7-8.2)
[2025-08-17 09:01] LABS: Alanine Aminotransferase 53 U/L (7-40); Alkaline Phosphatase 148 U/L (46-116); Bilirubin, Total 1.0 mg/dL (0.2-1.0); Blood Urea Nitrogen 29 mg/dL (9-23); Chloride 105 mmol/L (98-107); HDL Cholesterol 35 mg/dL (40-59); Potassium 4.1 mmol/L (3.5-5.1); Sodium 141 mmol/L (136-145); Triglycerides 151 mg/dL (< 150)
--- NOTE | 2025-08-17 09:03 | DVHPN2 ---
Consult Progress Note Date Seen: Aug 17, 2025 Subjective Review of Systems: CVS:Normal, RESPIRATORY:Normal, NEURO:Normal Other Systems: Denies any cardiac symptoms Objective vital signs Vital Sign Date Time Temp Pulse Resp B/P (MAP) Pulse Ox O2 Delivery O2 Flow Rate FiO2 08/17/25 05:00 97.5 81 18 114/75 (88) 99 97.5 08/16/25 20:00 Nasal Cannula* 2 28 Total Intake and Output 08/16/25 08/16/25 08/17/25 15:00 23:00 07:00 Intake Total 1500 ml 1200 ml Balance 1500 ml 1200 ml medications Current Medications Medications Dose Ordered Sig/Jud Route Start Time Stop Time Status Last Admin Dose Admin Acetaminophen/ Hydrocodone Bitart 1 tab Q4HP PRN PO 08/14/25 14:00 Ondansetron HCl 4 mg Q4HP PRN IV 08/14/25 14:00 Enoxaparin Sodium 40 mg DAILY SC 08/15/25 10:00 08/16/25 09:34 40 MG Acetaminophen 650 mg Q6HP PRN PO 08/14/25 14:00 Atorvastatin Calcium 40 mg HS PO 08/14/25 22:00 08/16/25 21:02 40 MG Tamsulosin HCl 0.4 mg QPM PO 08/14/25 18:00 08/16/25 17:35 0.4 MG Furosemide 40 mg DAILY PO 08/17/25 10:00 Metoprolol Tartrate 25 mg BID PO 08/16/25 22:00 08/16/25 21:02 25 MG Examination: LUNGS:Abnormal (+bilateral crackles, improving), CVS:Normal, N EURO:Normal laboratory and microbiology Test 08/17/25 08:05 Range/Units Serum Glucose Pending Problem List/Assessment/Plan Problem List/Assessment/Plan Acute on chronic decompensated HFrEF, NYHA ClassIII Ventricular bigeminy/trigeminy Left bundle branch block Mitral insufficiency, bxifjvgf-sv-ngdbau degree Tricuspid regurgitation, juyshdbx-zd-jsqfme degree Pulmonary hypertension, severe degree, likely Group I Acute hypoxic respiratory failure ALEXSANDRA on advanced CKD Elevated LFTs Acute methamphetamine intoxication Medical noncompliance Obesity Plan/Recommendation (Dr. Good) Transthoracic echocardiogram revealed LVEF of 10% at best with diminished RV fun ction and zubbuydp-cc-hxeoum mitral insufficiency, yzfgpgjm-cp-bhcxmg tricuspid regurgitation, and right ventricular pressures of 68-70 mmHg. Continue GDMT for CHF as renal function permits, currently on metoprolol (heart rate reading lower secondary to ventricular bigeminy/trigeminy). Continue Nephrology recommendations, preload reduction per renal team. DVT/VTE prophylaxis. Conservative management given poor medical compliance and drug abuse. CXR reveals improved aeration. Morning blood work pending at this time, we will defer follow up to primary care team. There is no further cardiac work-up indicated. Kindly call if in need to re-consult. Thank you for allowing us to participate in this patient's care. This medical document was created using an electronic medical record system with voice recognition software and computerized dictation system. Although this document has been carefully reviewed, there might still be some phonetic and typographical errors. Occasional wrong-word or ``sound-alike substitutions may have occurred due to the inherent limitations of voice recognition software. These areas are purely typographical due to imperfections of the software programs and do not reflect any compromise in the patient's medical care. Please read the chart carefully and recognize, using context, where these substitutions have occurred. Plan discussed with: Patient, Other Date of Service: Aug 17, 2025 Billing Provider: CARLOS CULP Cardiology Common Codes: 44120-[id number] [facility] CARE(High CARLOS CULP Aug 17, 2025 09:03
[2025-08-17] MEDS: FUROSEMIDE 20 MG TAB PO SCH (10:43)
--- NOTE | 2025-08-17 11:22 | ECG ---
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
--- NOTE | 2025-08-17 11:37 | DVHDS2 ---
Discharge Summary Date of Admission Aug 14, 2025 at 13:46 Date of Discharge: Aug 17, 2025 Labs/Diagnostic Data: Laboratory Results Test 08/17/25 08:05 08/16/25 14:58 08/16/25 00:35 08/15/25 11:25 White Blood Count 8.1 10^3/uL (4.4-10.8) Red Blood Count 5.15 10^6/uL (4.5-5.90) Hemoglobin 16.3 g/dL (13.5-17.5) Hematocrit 47.7 % (41.0-53.0) Mean Corpuscular Volume 92.7 fL (80.0-100.0) Mean Corpuscular Hemoglobin 31.6 pg (28.0-32.0) Mean Corpuscular Hemoglobin Concent 34.1 g/dL (32.0-36.0) Red Cell Distribution Width 13.7 % (11.8-14.3) Platelet Count 232 10^3/uL (140-450) Mean Platelet Volume 10.1 fL (6.9-10.8) Neutrophils (%) (Auto) 65.9 % (37.0-80.0) Lymphocytes (%) (Auto) 16.7 % (10.0-50.0) Monocytes (%) (Auto) 15.6 % (0.0-12.0) Eosinophils (%) (Auto) 1.4 % (0.0-7.0) Basophils (%) (Auto) 0.4 % (0.0-2.0) Neutrophils # (Auto) 5.3 10 ^3/uL (1.6-8.6) Lymphocytes # (Auto) 1.4 10 ^3/uL (0.4-5.4) Monocytes # (Auto) 1.3 10 ^3/uL (0-1.3) Eosinophils # (Auto) 0.1 10 ^3/uL (0-0.8) Basophils # (Auto) 0 10 ^3/uL (0-0.2) Nucleated Red Blood Cells 0.2 % Sodium Level 141 mmol/L (136-145) Potassium Level 4.1 mmol/L (3.5-5.1) Chloride Level 105 mmol/L (98-107) Carbon Dioxide Level 25 mmol/L (20-31) Anion Gap 11 (5-15) Blood Urea Nitrogen 29 mg/dL (9-23) Creatinine 2.17 mg/dL (0.700-1.30) Glomerular Filtration Rate Calc 33 mL/min (>90) BUN/Creatinine Ratio 13.4 (10.0-20.0) Serum Glucose 91 mg/dL (74-106) Hemoglobin A1c 5.9 % A1C (<5.7) Calcium Level 8.9 mg/dL (8.7-10.4) Total Bilirubin 1.0 mg/dL (0.2-1.0) Aspartate Amino Transferase (AST) 25 U/L (13-40) Alanine Aminotransferase (ALT) 53 U/L (7-40) Alkaline Phosphatase 148 U/L (46-116) B-Type Natriuretic Peptide 650.23 pg/mL (0-100) Total Protein 7.8 g/dL (5.7-8.2) Albumin 4.4 g/dL (3.2-4.8) Triglycerides Level 151 mg/dL (< 150) Cholesterol Level 174 mg/dL (< 200) LDL Cholesterol 126 mg/dL (< 100) HDL Cholesterol 35 mg/dL (40-59) Thyroid Stimulating Hormone (TSH) 1.23 uIU/mL (0.55-4.78) Blood Gas Specimen Type Arterial Blood Gas Sample Site Right radial Blood Gas Patient Temperature 37.0 Arterial Blood Date Drawn [id number] Arterial Blood pH 7.554 (7.350-7.450) Arterial Blood Partial Pressure CO2 32.8 mmHg (35.0-48.0) Arterial Blood Partial Pressure O2 66.5 mmHg (83.0-108.0) Arterial Blood HCO3 28.3 mmol/L (21.0-28.0) Arterial Blood Oxygen Saturation 94.9 % (94.0-98.0) Arterial Blood Base Excess 6.3 mmol/L (-2.0-3.0) Arterial Blood Oxyhemoglobin 93.6 % (94.0-98.0) Arterial Blood Carboxyhemoglobin 1.1 % (0.5-1.5) Arterial Blood Methemoglobin 0.3 % (0.0-1.5) Ganesh Test Yes Blood Gas Total Hemoglobin 15.40 g/dL (13.5-17.5) Blood Gas Modality Room air FiO2 % 21.0 Blood Gas Critical Value Read Back yes Blood Gas Notified Whom Blood Gas Notified Time [id number] Blood Gas Notified By morale officer bao Urine Color Colorless (Yellow) Urine Clarity Clear (Clear) Urine pH 5.0 (5.0-9.0) Urine Specific [place] 1.006 (1.001-1.035) Urine Protein Negative (Negative) Urine Ketones Negative (Negative) Urine Blood Negative /uL (Negative) Urine Nitrite Negative (Negative) Urine Bilirubin Negative (Negative) Urine Urobilinogen Normal mg/dL (Negative) Urine Leukocyte Esterase Negative /uL (Negative) Urine RBC 1 /hpf (0 - 3) Urine Microscopic WBC 1 /HPF (0-3) Urine Squamous Epithelial Cells None seen /hpf (<5) Urine Bacteria None seen /hpf (None Seen) Urine Creatinine 24.34 mg/dL (30.0-125.0) Urine Protein/Creatinine Ratio 0.25 Urine Sodium 60 mmol/L (40-220) Urine Glucose 2+ mg/dL (Normal) Urine Total Protein < 6.0 mg/dL (1-14) Urine Opiates Screen Neg (NEGATIVE) Urine Fentanyl Screen Neg (NEGATIVE) Urine Barbiturates Screen Neg (NEGATIVE) Urine Phencyclidine Screen Neg (NEGATIVE) Urine Amphetamines Screen Pos (NEGATIVE) Urine Benzodiazepines Screen Neg (NEGATIVE) Urine Cocaine Screen Neg (NEGATIVE) Urine Cannabinoids Screen Neg (NEGATIVE) Free Prostate Specific Antigen 0.25 ng/mL (N/A) Percent Free Prostate Specific Ag 19.2 % (.) Prostate Specific Antigen Total 1.3 ng/mL (0.0-4.0) Test 08/15/25 05:48 08/15/25 05:47 08/15/25 05:42 Phosphorus Level 5.7 mg/dL (2.4-5.1) Magnesium Level 2.0 mg/dL (1.6-2.6) Parathyroid Hormone (Intact) 164.3 pg/mL (18.4-80.1) Vitamin D 25-Hydroxy 39.2 ng/mL (30.0-100) Hepatitis B Surface Antigen Negative (Negative) Hepatitis C Antibody Negative (Negative) Other Laboratory Tests 08/17/25 08:05 Brief Hx & Hospital Course: 64 y.o male with PMHx of CH and HTN, presents to the ED via EMS for a chief complaint of SOB that started 2 days ago. EMS reports diminished lung sounds on their examination with a SPO2 of 81% RA. EMS placed patient on 10 liters nonrebreather and given 0.4 NTG which did not improve SPO2. Patient mentions unable to refill medications and has been out of them for 2 weeks. He also complains of intermittent chest pain for the past couple days but denies any active pain upon ED arrival. Patient endorses that he was seeing a farm loan representative but recently changed insurances from [employer] to [employer], currently no farm loan representative. He believes he heard EF 10-15% in the past echocardiogram. He is taking multiple medications with which he has been compliant. Endorses that normally his right leg swells up more. 08/14: Patient acute shortness of breath 2 days ago and worsening, requiring n on-rebreather in ER to maintain saturations, initially SpO2 81% on room air,. On exam patient volume overloaded rales up to middle lobes, mild trace pitting edema right lower extremity, creatinine elevated inpatient no knowledge of CKD, likely ALEXSANDRA, BNP elevated, chest x-ray with pulmonary vascular congestion diffuse, no JVD, no S3, no prior echo in this facility. Patient being admitted for acute hypoxic respiratory failure likely due to acute decompensated heart failure . We may need to rule out PE if hypoxia and tachycardia continue, 08/15: Significant improvement in rales but still on high level oxygen 6 L nasal cannula. Creatinine worsening T bili worsening, we will get right upper quadrant ultrasound, consult Nephrology, decrease Lasix from 40 t.i.d. to 40 daily. 08/16: Patient feels at baseline now much better, still on nasal cannula 3 L, we will need ABG on room air today. Nephrology following had switch from Lasix to Bumex 1 mg IV b.i.d., patient has made adequate urine output this a.m. labs show contraction alkalosis, I am stopping diuresis he does have still some by basilar fine rales but overall looks euvolemic. Patient claims he has [facility] insurance we will get ABG and see if patient qualifies for home oxygen. Echo done showing 10% EF, patient has no farm loan representative, and endorses that his most recent EF last year was 10-15%, consistent with his current echocardiogram results. --nephrology recommendation Lasix 40 mg p.o. daily 08/17: Patient feeling better, euvolemic, cardiology evaluated patient, patient is stable for discharge vital signs stable. Continue medications, holding off Jardiance and spironolactone right now,. Patient to set up with PCP have referral for Cardiology and Nephrology. Continuing Lasix 40 daily, Diagnosis: Acute hypoxic respiratory failure Acute exacerbation of chronic heart failure, systolic and diastolic dysfunction likely Diffuse pulmonary edema, acute onset ALEXSANDRA, on CKD , cardiorenal syndrome likely Sirs with AID (hypoxemia) Tachycardia Tachypnea Transaminitis, likely due to above Hyperbilirubinemia, likely due to above ALP elevated plan: -Continuing Lasix 40 daily, -Continue other home medications, (metoprolol Lopressor 25 mg p.o. b.i.d., tamsulosin 0.4 mg daily, Lipitor 40 daily,) -holding off Jardiance and spironolactone right now, -Patient to set up with PCP have referral for Cardiology and Nephrology. Condition at Discharge: Fair Final Diagnosis/Problems List Acute hypoxic respiratory failure Acute exacerbation of chronic heart failure, systolic and diastolic dysfunction likely Diffuse pulmonary edema, acute onset ALEXSANDRA, on CKD , cardiorenal syndrome likely Sirs with AID (hypoxemia) Tachycardia Tachypnea Transaminitis, likely due to above Hyperbilirubinemia, likely due to above ALP elevated Discharge Disposition: Home Discharge Instruct/Medications Scheduled Furosemide (Furosemide), 1 TAB PO DAILY, (Reported) Furosemide (Furosemide), 1 TAB PO DAILY Metoprolol Tartrate (Lopressor), 25 MG PO Q12HR Rosuvastatin Calcium (Crestor), 1 TAB PO DAILY Spironolactone (Spironolactone), 1.2 TAB PO DAILY, (Reported) Tamsulosin Hcl (Tamsulosin Hcl), 1 CAP PO DAILY Miscellaneous Medications Bisoprolol Fumarate (Bisoprolol Fumarate), 5 MG PO, (Reported) Empagliflozin (Jardiance), 25 MG PO, (Reported) Discharge Statement: "Patient was advised to return to the ER or call 911 if any headaches, dizziness, shortness of breath, chest pain, abdominal pain, bleeding, fevers, or worsening of medical condition. Patient was counseled about treatment plan, medications, possible side effects, patientverbalized understanding. All questions were answered to the best of my ability. This discharge took greater then 30 minutes in planning, reviewing documentation, counseling the patient, and discussing with other team members." ASSESSMENT ASSESSMENT Assessment Date of Service: Aug 17, 2025 Billing Provider: RACHAEL PETERS MD Common Visit Codes: 34865-COY/OBS DISCH DAY >30min RACHAEL PETERS MD Aug 17, 2025 11:37
[2025-08-17] MEDS ORDERED: MET25T PO (13:48)
[2025-08-17] MEDS ORDERED: FURO40TA4 PO (13:48)
[2025-08-17] MEDS ORDERED: ROSU20TA14 PO (13:48)
[2025-08-17] MEDS ORDERED: TAMS0.4C39 PO (13:48)
--- NOTE | 2025-08-17 17:10 | DVHPN2 ---
Progress Note Date Seen: Aug 17, 2025 Medical Necessity Reason Pt with a Central, PICC or Fol: No Subjective Patient reports: No new complaints Objective vital signs Vital Sign Date Time Temp Pulse Resp B/P (MAP) Pulse Ox O2 Delivery O2 Flow Rate FiO2 08/17/25 15:18 97.5 88 18 97 08/17/25 13:36 147/96 (113) 08/17/25 08:30 Nasal Cannula* 3 32 Total Intake and Output 08/16/25 08/16/25 08/17/25 14:59 22:59 06:59 Intake Total 1500 ml 1200 ml Balance 1500 ml 1200 ml medications Current Medications Medications Dose Ordered Sig/Jud Route Start Time Stop Time Status Last Admin Dose Admin Acetaminophen/ Hydrocodone Bitart 1 tab Q4HP PRN PO 08/14/25 14:00 Ondansetron HCl 4 mg Q4HP PRN IV 08/14/25 14:00 Enoxaparin Sodium 40 mg DAILY SC 08/15/25 10:00 08/17/25 10:44 40 MG Acetaminophen 650 mg Q6HP PRN PO 08/14/25 14:00 Atorvastatin Calcium 40 mg HS PO 08/14/25 22:00 08/16/25 21:02 40 MG Tamsulosin HCl 0.4 mg QPM PO 08/14/25 18:00 08/16/25 17:35 0.4 MG Furosemide 40 mg DAILY PO 08/17/25 10:00 08/17/25 10:43 40 MG Metoprolol Tartrate 25 mg BID PO 08/16/25 22:00 08/16/25 21:02 25 MG laboratory and microbiology Laboratory Tests 08/17/25 08:05 Test 08/17/25 08:05 Range/Units Serum Glucose 91 74-106 mg/dL Problem List/Assessment/Plan Problem List/Assessment/Plan Acute kidney injury superimposed Chronic Kidney Disease secondary hemodynamic mediated cardiorenal etiology Acute respiratory failure, O2 nasal cannula Congestive heart failure exacerbation BPH Transaminitis Jaundice recs switch to po diuretics ef 10 better renal function ok to resume [id number] Plan discussed with: Patient ARCELIA DE LA TORRE MD Aug 17, 2025 17:10
== END 2025-08-17 17:47 | disposition home or self-care (01) | DRG 194 ==
LOC: EDBD 08:13 → ER 08:13 → OVERFLOW 13:46 → TELE-CENTR 16:19
PROVIDERS: ADMIT Student in an Organized Health Care Education/Training Program; ATTEND Student in an Organized Health Care Education/Training Program
DX: I13.0 Hypertensive heart and chronic kidney disease with heart failure and stage 1 through stage 4 chronic kidney disease, or unspecified chronic kidney disease (principal); J96.01 Acute respiratory failure with hypoxia; R65.11 Systemic inflammatory response syndrome (SIRS) of non-infectious origin with acute organ dysfunction; N17.9 Acute kidney failure, unspecified; R17 Unspecified jaundice; I27.20 Pulmonary hypertension, unspecified; I50.43 Acute on chronic combined systolic (congestive) and diastolic (congestive) heart failure; N18.9 Chronic kidney disease, unspecified; R74.01 Elevation of levels of liver transaminase levels; N40.0 Benign prostatic hyperplasia without lower urinary tract symptoms; E66.9 Obesity, unspecified; I44.7 Left bundle-branch block, unspecified; F15.129 Other stimulant abuse with intoxication, unspecified; I08.1 Rheumatic disorders of both mitral and tricuspid valves; Z87.891 Personal history of nicotine dependence; Z79.899 Other long term (current) drug therapy; Z79.84 Long term (current) use of oral hypoglycemic drugs; Z91.128 Patient's intentional underdosing of medication regimen for other reason
CPT/HCPCS: 36415; 36600; 71045; 76700; 80053; 80061; 80307; 81001; 82306; 82570; 82805; 83036; 83735; 83880; 83970; 84100; 84154; 84156; 84300; 84443; 85025; 86803; 87340; 93005; 93306; 93970; 99291; 99292; G0378